=== PATIENT | female | born 1960 | race Caucasian/White ===

== ENCOUNTER 2020-01-01 20:07 | Inpatient (IN) | payer MEDICAID ==
[~2020-01-01] VITALS: Ht 171.4 cm; Wt 79.0 kg
[~2020-01-01 20:07] MED LIST: FAMO-128 PO; GABA100C PO; LAMO25TA94 PO; LEVO50TA67 PO; SERT50TA PO
[2020-01-01] MEDS ORDERED: normal saline 1000ML IV soln IVB ONE (21:10)
[2020-01-01] MEDS ORDERED: ondansetron/PF 4mg/2ml inj IV ONE (21:10)
[2020-01-01] MEDS ORDERED: pantoprazole 40 MG vial IV ONE (21:10)
[2020-01-01 21:16] LABS: BASOPHILS # (AUTO) 0.1 X10'3 (0-0.2); BASOPHILS % (AUTO) 0.3 % (0-1); EOSINOPHILS % (AUTO) 0 % (0-6); HEMATOCRIT 40.8 % (35.0-45.0); HEMOGLOBIN 13.7 g/dl (12.0-16.0); LYMPHOCYTES # (AUTO) 1.4 X10'3 (1.1-4.8); LYMPHOCYTES % (AUTO) 5.6 % (21-51); MEAN CORPUSCULAR HEMOGLOBIN 30.4 PG (27.0-31.0); MEAN CORPUSCULAR HGB CONC 33.6 g/dL (33.0-36.5); MEAN CORPUSCULAR VOLUME 90.4 FL (78-98); MEAN PLATELET VOLUME 8.6 FL (7.4-10.4); MONOCYTES # (AUTO) 1.5 X10'3 (0-0.9); NEUTROPHILS # (AUTO) 22.2 X10'3 (1.8-7.7); NEUTROPHILS % (AUTO) 88.1 % (42-75); PLATELET COUNT 248 X10'3 (140-440); RED BLOOD COUNT 4.52 X10'6 (4.20-5.60); RED CELL DISTRIBUTION WIDTH 14.8 % (11.5-14.5)
[2020-01-01 21:20] LABS: WHITE BLOOD COUNT 25.2 X10'3 (4.5-11.0)
[2020-01-01 21:50] LABS: TOTAL CELLS COUNTED 100
[2020-01-01 21:51] LABS: PLATELET ESTIMATE NORMAL
[2020-01-01] MEDS ORDERED: FAMO-128 PO (21:59)
[2020-01-01 22:04] LABS: ALANINE AMINOTRANSFERASE 34 U/L (12-78); ALBUMIN 4.2 G/DL (3.4-5.0); ALBUMIN/GLOBULIN RATIO 1.2 (1.1-1.5); ALKALINE PHOSPHATASE 110 IU/L (46-116); ANION GAP 16 (8-16); ASPARTATE AMINO TRANSFERASE 40 U/L (10-37); BILIRUBIN,TOTAL 1.4 MG/DL (0.1-1.0); BLOOD UREA NITROGEN 55 MG/DL (7-18); BUN/CREATININE RATIO 42.3 (6.6-38.0); CALCIUM 9.3 MG/DL (8.5-10.1); CHLORIDE 92 MMOL/L (99-107); GLUCOSE 158 MG/DL (70-104); LIPASE 148 U/L (73-393); SODIUM 129 MMOL/L (135-145); TOTAL CARBON DIOXIDE 21.1 MMOL/L (24-32); TOTAL PROTEIN 7.8 G/DL (6.4-8.2); eGFR 42 ML/MIN
[2020-01-01 22:06] LABS: ETHANOL < 0.010 GM/DL (0.0-0.010)
[2020-01-01 22:10] LABS: POTASSIUM 2.9 MMOL/L (3.5-5.1)
[2020-01-01] MEDS: potassium Cl 10 mEq/100mL bag IV SCH (22:48)
--- NOTE | 2020-01-01 22:59 | NUR ---
Pt assisted to the bedside commode to void clean catch urine specimen. Dr. Guerrero attempted some valsalva maneuvers to attempt to convert the elevated heart rate, SVT running 140's to 165 on the tele monitor. Pt's heart rate continues to be elevated.
[2020-01-01 23:13] LABS: CLARITY,URINE CLEAR (Clear); COLOR,URINE STRAW (Yellow); GLUCOSE, URINE NEGATIVE (Neg); KETONES,URINE 15 mg/dl (Neg); LEUKOCYTE ESTERASE ,URINE NEGATIVE (Neg); NITRITES, URINE POSITIVE (Neg); OCCULT BLOOD,URINE SMALL (Neg); PROTEIN,URINE NEGATIVE (Neg); UROBILINOGEN,URINE 0.2 E.U/dL (0.2-1.0)
[2020-01-01 23:19] LABS: UA COLLECTION TYPE CLN CATCH MIDSTREAM
[2020-01-01 23:21] LABS: BACTERIA,URINE 1+ /HPF (Neg); RBC,URINE 0-2 /HPF (0-2); SQUAMOUS EPITHELIAL CELL,UR FEW /LPF (FEW); WBC,URINE 0-4 /HPF (0-4)
--- NOTE | 2020-01-01 23:25 | NUR ---
Consent reviewed and signed for cardioversion of SVT. Pt is on the monitor and crash cart pads.
[2020-01-01] MEDS ORDERED: adenosine 3mg/ml 2ml vial IV ONE ×2 (23:40)
--- NOTE | 2020-01-01 23:55 | NUR ---
6mg adenosine administered with Dr Guerrero at bedside. RT Kaitlynn also present. Patient's HR 122 following medication administration, EKG done at this time. MD garrison
[2020-01-02] MEDS ORDERED: proCHLORperazine 10mg tablet PO ONE
[2020-01-02] MEDS ORDERED: proCHLORperazine 10 MG/2 ml inj IV ONE (00:05)
--- NOTE | 2020-01-02 00:05 | NUR ---
assumed care from [facility] at this time no questions or concerns after assuming care
[2020-01-02] MEDS: potassium Cl 10 mEq/100mL bag IV SCH (00:27)
[2020-01-02] MEDS ORDERED: potassium Cl 20 mEq SR tablet PO PRN (03:15)
[2020-01-02] MEDS ORDERED: ondansetron/PF 4mg/2ml inj IV PRN (03:15)
[2020-01-02] MEDS ORDERED: magnesium 2GM in 50ml NS 50 ML IV PRN (03:15)
[2020-01-02] MEDS ORDERED: magnesium 4gm in 100ml NS 100 ML IV PRN (03:15)
[2020-01-02] MEDS ORDERED: magnesium Cl slow-release 64mg tablet PO PRN (03:15)
--- NOTE | 2020-01-02 03:30 | NUR ---
PATIENT UP TO BEDSIDE COMMODE IN EYESITE OF PRIMARY RN
--- NOTE | 2020-01-02 03:45 | NUR ---
Patient in room ED 3. I have received report from Jermaine JAMESON and had the opportunity to ask questions and assume patient care.
[2020-01-02 03:50] VITALS: BP 131/74
[2020-01-02] MEDS: normal saline 1000ml 1,000 ML IV SCH ×3 (03:58→22:49)
--- NOTE | 2020-01-02 04:17 | NUR ---
Patient arrived to the floor at 0350 from the ER via gurney. VSS. Skin check complete. Darting complete. MRSA swab collected. Oriented patient to room, vital signs times, medication times, meal times, and unit policies.
[2020-01-02] MEDS: pantoprazole 40MG/NS 100ML BAG 100 ML IV SCH ×4 (05:15→20:44)
--- NOTE | 2020-01-02 06:20 | NUR ---
Problems reprioritized. Patient report given, questions answered & plan of care reviewed with Krista JAMESON.
--- NOTE | 2020-01-02 06:26 | NUR ---
Patient in room PCU 3024. I have received report from Katherine JAMESON and had the opportunity to ask questions and assume patient care. Patient currently sleeping, NS and Protonix running per MD order.
[2020-01-02 07:00] VITALS: BP 111/67
--- NOTE | 2020-01-02 07:28 | NUR ---
Page sent to Dr. Leary: PAGER ID: [phone] MESSAGE: [id number] Sadie Elliott: Temp is 99.8,would you like PRN Tylenol ordered? Thanks, Krista [phone]
[2020-01-02] MEDS: sertraline 50mg tablet PO SCH (07:43)
[2020-01-02] MEDS: levoTHYROXINE 25mcg tablet PO SCH (07:43)
[2020-01-02] MEDS: K and/or MAG REPLACEMENT MC SCH ×2 (08:00→20:00)
[2020-01-02 08:38] LABS: ALBUMIN 3.5 G/DL (3.4-5.0); ANION GAP 15 (8-16); BLOOD UREA NITROGEN 45 MG/DL (7-18); BUN/CREATININE RATIO 41.3 (6.6-38.0); CALCIUM 8.2 MG/DL (8.5-10.1); CHLORIDE 105 MMOL/L (99-107); CREATININE 1.09 MG/DL (0.40-0.90); GLUCOSE 118 MG/DL (70-104); POTASSIUM 3.1 MMOL/L (3.5-5.1); SODIUM 137 MMOL/L (135-145); TOTAL CARBON DIOXIDE 16.7 MMOL/L (24-32); eGFR 52 ML/MIN
[2020-01-02] MEDS ORDERED: metoprolol tartrate 1mg/ml inj IV ONE (09:10)
[2020-01-02] MEDS ORDERED: acetaminophen 325mg tablet PO PRN ×2 (09:40)
[2020-01-02 09:49] LABS: BASOPHILS % (AUTO) 0.1 % (0-1); EOSINOPHILS % (AUTO) 0 % (0-6); HEMATOCRIT 29.3 % (35.0-45.0); LYMPHOCYTES # (AUTO) 0.9 X10'3 (1.1-4.8); LYMPHOCYTES % (AUTO) 6.7 % (21-51); MEAN CORPUSCULAR HEMOGLOBIN 30.2 PG (27.0-31.0); MEAN CORPUSCULAR VOLUME 88.6 FL (78-98); MEAN PLATELET VOLUME 8.6 FL (7.4-10.4); MONOCYTES # (AUTO) 0.8 X10'3 (0-0.9); MONOCYTES % (AUTO) 5.6 % (2-12); NEUTROPHILS # (AUTO) 11.8 X10'3 (1.8-7.7); NEUTROPHILS % (AUTO) 87.6 % (42-75); PLATELET COUNT 191 X10'3 (140-440); RED BLOOD COUNT 3.31 X10'6 (4.20-5.60); RED CELL DISTRIBUTION WIDTH 14.2 % (11.5-14.5); WHITE BLOOD COUNT 13.5 X10'3 (4.5-11.0)
[2020-01-02] MEDS ORDERED: haloperidol lactate 5mg/ml inj IM PRN (10:40)
[2020-01-02] MEDS ORDERED: haloperidol 5mg tablet PO PRN (10:40)
[2020-01-02] MEDS: HYDROmorphone inj. 0.5 MG/0.5 ML DISP.SYRIN IV PRN ×2 (10:43→19:18)
[2020-01-02] MEDS: potassium CL 10mEq/100ml bag 100 ML IV PRN ×4 (10:56→15:44)
[2020-01-02 11:00] VITALS: BP 104/74
[2020-01-02 12:17] LABS: URINE AMPHETAMINE SCREEN NEGATIVE (Neg); URINE BARBITUATE SCREEN NEGATIVE (Neg); URINE BENZODIAZEPINES SCREEN NEGATIVE (Neg); URINE CANNABINOID SCREEN POSITIVE (Neg); URINE COCAINE SCREEN NEGATIVE (Neg); URINE METHADONE SCREEN NEGATIVE (Neg); URINE OPIATE SCREEN NEGATIVE (Neg); URINE PHENCYCLIDINE SCREEN NEGATIVE (Neg)
[2020-01-02] MEDS ORDERED: metoclopramide 5 mg/ml inj IV PRN (13:55)
[2020-01-02 15:00] VITALS: BP 119/84
[2020-01-02] MEDS: piperacillin/tazo 3.375gm/50ml 50 ML IV SCH (15:51)
[2020-01-02 18:00] VITALS: BP 123/85
--- NOTE | 2020-01-02 18:25 | NUR ---
Problems reprioritized. Patient report given, questions answered & plan of care reviewed with Kieran JAMESON. Patient stable at transfer of care.
--- NOTE | 2020-01-02 18:25 | NUR ---
Patient in room PCU 3024X. I have received report from TRINO Velasco and had the opportunity to ask questions and assume patient care. Patient denies CP, dizziness, n/v and rated pain 8/10. Pt received all bags of potassium.
[2020-01-02 22:00] VITALS: BP 125/74
[2020-01-02] MEDS ORDERED: benzocaine/menthol oral lozeng 1 EACH BOX MM PRN (22:05)
[2020-01-03] VITALS (26 sets, daily range): BP systolic 93–157; BP diastolic 52–111
[2020-01-03] MEDS: piperacillin/tazo 3.375gm/50ml 50 ML IV SCH ×2 (00:01→08:58)
[2020-01-03] MEDS: pantoprazole 40MG/NS 100ML BAG 100 ML IV SCH ×5 (00:52→19:11)
[2020-01-03] MEDS: HYDROmorphone inj. 0.5 MG/0.5 ML DISP.SYRIN IV PRN ×3 (02:46→23:35)
[2020-01-03 05:58] LABS: BASOPHILS % (AUTO) 0.3 % (0-1); EOSINOPHILS % (AUTO) 0.2 % (0-6); HEMATOCRIT 24.8 % (35.0-45.0); HEMOGLOBIN 8.6 g/dl (12.0-16.0); LYMPHOCYTES % (AUTO) 9.6 % (21-51); MEAN CORPUSCULAR HGB CONC 34.5 g/dL (33.0-36.5); MEAN CORPUSCULAR VOLUME 89.9 FL (78-98); MEAN PLATELET VOLUME 8.4 FL (7.4-10.4); MONOCYTES # (AUTO) 0.6 X10'3 (0-0.9); MONOCYTES % (AUTO) 5.8 % (2-12); NEUTROPHILS # (AUTO) 8.6 X10'3 (1.8-7.7); NEUTROPHILS % (AUTO) 84.1 % (42-75); PLATELET COUNT 150 X10'3 (140-440); RED BLOOD COUNT 2.76 X10'6 (4.20-5.60); RED CELL DISTRIBUTION WIDTH 14.5 % (11.5-14.5); WHITE BLOOD COUNT 10.2 X10'3 (4.5-11.0)
--- NOTE | 2020-01-03 06:18 | NUR ---
Problems reprioritized. Patient report given, questions answered & plan of care reviewed with TRINO Polo. Patient stable at shift change
[2020-01-03 06:29] LABS: ALBUMIN 3.5 G/DL (3.4-5.0); AMYLASE 51 U/L (25-115); ANION GAP 12 (8-16); BLOOD UREA NITROGEN 12 MG/DL (7-18); CALCIUM 8.3 MG/DL (8.5-10.1); CHLORIDE 111 MMOL/L (99-107); GLUCOSE 112 MG/DL (70-104); LIPASE 443 U/L (73-393); MAGNESIUM 1.8 MG/DL (1.5-2.4); SODIUM 147 MMOL/L (135-145); TOTAL CARBON DIOXIDE 24.5 MMOL/L (24-32); eGFR 74 ML/MIN
[2020-01-03 06:30] LABS: PHOSPHORUS 0.9 MG/DL (2.3-4.5); POTASSIUM 2.8 MMOL/L (3.5-5.1)
--- NOTE | 2020-01-03 06:44 | NUR ---
Patient in room PCU 3024. I have received report from TRINO Alcaraz and had the opportunity to ask questions and assume patient care. Patient currently resting in bed, bed locked and low, call light in reach, no acute distress, will continue to monitor
--- NOTE | 2020-01-03 07:04 | NUR ---
PAGER ID: [phone] MESSAGE: TRINO Polo, [phone], [phone], Earl, received critical value: K 2.8, Phos 0.9, will replace K per protocol, no phos replacement ordered.
[2020-01-03] MEDS: levoTHYROXINE 25mcg tablet PO SCH (07:34)
[2020-01-03] MEDS: sertraline 50mg tablet PO SCH (07:34)
[2020-01-03] MEDS: potassium CL 10mEq/100ml bag 100 ML IV PRN ×3 (07:41→10:51)
[2020-01-03] MEDS ORDERED: thiamine inj. 100 MG, folic acid inj. 2 MG in normal saline 100ml IV soln 100 ML IV SCH (08:00)
[2020-01-03] MEDS ORDERED: MVI, adult No.4 with vit. K 10 ML in dextrose 5% water 500ml 500 ML IV SCH ×2 (08:00)
[2020-01-03] MEDS: LORazepam 2 mg/ml vial IV PRN ×3 (08:04→23:34)
[2020-01-03] MEDS: K and/or MAG REPLACEMENT MC SCH ×2 (08:08→19:27)
[2020-01-03] MEDS: normal saline 1000ml 1,000 ML IV SCH ×2 (09:54→19:07)
[2020-01-03] MEDS ORDERED: thiamine inj. 100 MG in normal saline 100ml IV soln 100 ML IV ONE (10:30)
[2020-01-03] MEDS ORDERED: fentaNYL/PF 50MCG/1 ML 2ML syringe ONE ×2 (13:32→16:38)
[2020-01-03] MEDS ORDERED: LIDOcaine Viscous 15ml cup ONE ×2 (13:32→16:38)
[2020-01-03] MEDS ORDERED: MIDAZolam 5mg/5ml vial ONE ×2 (13:32→16:38)
[2020-01-03] MEDS ORDERED: ondansetron/PF 4mg/2ml inj ONE (17:13)
[2020-01-03] MEDS ORDERED: metoclopramide 5 mg/ml inj IV ONE (17:40)
[2020-01-03] MEDS ORDERED: ondansetron/PF 4mg/2ml inj IV PRN (17:40)
[2020-01-03] MEDS ORDERED: epiNEPHrine 0.1mg/ml 10ml syringe ONE (17:45)
--- NOTE | 2020-01-03 18:13 | NUR ---
Problems reprioritized. Patient report given, questions answered & plan of care reviewed with TRINO Noyola. Addendum: 01/03/20 at 1819 by Melani Eng RN Report given to Minal JAMESON
--- NOTE | 2020-01-03 18:30 | NUR ---
Patient came back from GI lab awake and A&Ox4. Vital signs 108/62, HR 126, 99.4F Ax, RR 18, 94% on RA. Skin color is normal, strong pedal and radial pulses, [employer] <3 secs. GI staff said there was a bleed during the procedure so to keep her NPO until tomorrow morning, and then she can be started on Clear liquids. Patient was educated on this as well.
[2020-01-03] MEDS: lactobacillus rhamnosus 10,000 MMU CELLS/CAPSULE PO SCH (19:11)
[2020-01-03] MEDS: sucralfate 1gm/10ml UD suspension PO SCH (20:33)
--- NOTE | 2020-01-03 21:43 | NUR ---
Patient in room [facility] 3028. I have received report from TRINO Power and had the opportunity to ask questions and assume patient care. Addendum: 01/03/20 at 2143 by Minal Herrera RN Melani Eng RN not Jannet
[2020-01-04] MEDS: pantoprazole 40MG/NS 100ML BAG 100 ML IV SCH ×5 (00:27→20:49)
[2020-01-04 02:08] VITALS: BP 119/72
[2020-01-04 04:44] LABS: ALBUMIN 3.6 G/DL (3.4-5.0); AMYLASE 43 U/L (25-115); ANION GAP 9 (8-16); BLOOD UREA NITROGEN 8 MG/DL (7-18); BUN/CREATININE RATIO 11.9 (6.6-38.0); CALCIUM 8.3 MG/DL (8.5-10.1); CHLORIDE 120 MMOL/L (99-107); CREATININE 0.67 MG/DL (0.40-0.90); GLUCOSE 102 MG/DL (70-104); LIPASE 307 U/L (73-393); MAGNESIUM 1.8 MG/DL (1.5-2.4); POTASSIUM 3.3 MMOL/L (3.5-5.1); TOTAL CARBON DIOXIDE 26.4 MMOL/L (24-32); eGFR 90 ML/MIN
[2020-01-04 04:47] LABS: PHOSPHORUS 0.8 MG/DL (2.3-4.5); SODIUM 155 MMOL/L (135-145)
[2020-01-04] MEDS ORDERED: sodium phosphate inj. 30 MMOL in dextrose 5%-water 250 ML IV ONE (04:55)
--- NOTE | 2020-01-04 04:59 | NUR ---
Criticals NA 155 and PHOS 0.8 PAGER ID: [phone] MESSAGE: [id number] Sadie Elliott, critical levels: NA 155 and PHOS 0.8. Minal [phone] called back and gave new orders to replace phosphorus per protocol and start D5 1/2 NS @100ml/hr.
[2020-01-04] MEDS: dextrose 5%-1/2 normal saline 1,000 ML IV SCH ×3 (05:13→20:46)
[2020-01-04] MEDS: HYDROmorphone inj. 0.5 MG/0.5 ML DISP.SYRIN IV PRN ×3 (05:20→20:06)
[2020-01-04] MEDS: LORazepam 2 mg/ml vial IV PRN ×2 (05:20→08:56)
--- NOTE | 2020-01-04 06:16 | NUR ---
Problems reprioritized. Patient report given, questions answered & plan of care reviewed with TRINO Cochran.
--- NOTE | 2020-01-04 06:22 | NUR ---
Patient in room PCU 3028. I have received report from TRINO Fontaine and had the opportunity to ask questions and assume patient care. Patient awake in bed and in no acute distress.
[2020-01-04 06:37] LABS: BASOPHILS % (AUTO) 0.4 % (0-1); EOSINOPHILS # (AUTO) 0.1 X10'3 (0-0.9); EOSINOPHILS % (AUTO) 0.7 % (0-6); HEMOGLOBIN 7.5 g/dl (12.0-16.0); LYMPHOCYTES # (AUTO) 1.4 X10'3 (1.1-4.8); MEAN CORPUSCULAR HEMOGLOBIN 31.4 PG (27.0-31.0); MEAN CORPUSCULAR HGB CONC 34.3 g/dL (33.0-36.5); MEAN CORPUSCULAR VOLUME 91.5 FL (78-98); MEAN PLATELET VOLUME 8.2 FL (7.4-10.4); MONOCYTES # (AUTO) 0.6 X10'3 (0-0.9); MONOCYTES % (AUTO) 6.3 % (2-12); NEUTROPHILS # (AUTO) 7.8 X10'3 (1.8-7.7); NEUTROPHILS % (AUTO) 78.6 % (42-75); PLATELET COUNT 165 X10'3 (140-440); RED BLOOD COUNT 2.38 X10'6 (4.20-5.60); RED CELL DISTRIBUTION WIDTH 14.8 % (11.5-14.5)
[2020-01-04 06:47] LABS: HEMATOCRIT 21.8 % (35.0-45.0)
--- NOTE | 2020-01-04 06:49 | NUR ---
Paged Dr. Cavazos regarding critical lab of Hemoglobin and Hematocrit. PAGER ID: [phone] MESSAGE: [id number]. Sadie Elliott. Critical lab Hbg 7.5 and Hct 21.8. Thank you. Sammie JAMESON x [phone]
[2020-01-04 07:00] VITALS: BP 121/82
[2020-01-04 07:30] LABS: ANISOCYTOSIS FEW; HYPOCHROMASIA 1+; NUCLEATED RED BLOOD CELLS 4 /100WBC (0-0); PLATELET ESTIMATE NORMAL; POLYCHROMASIA 2+; TOTAL CELLS COUNTED 100; TOXIC GRANULATION 1+
[2020-01-04] MEDS: K and/or MAG REPLACEMENT MC SCH ×2 (08:00→20:00)
[2020-01-04] MEDS: sucralfate 1gm/10ml UD suspension PO SCH ×4 (08:55→20:05)
--- NOTE | 2020-01-04 09:07 | NUR ---
Paged Dr. Barraza regarding patient's morning critical labs. PAGER ID: [phone] MESSAGE: [id number]. Sadie Elliott. Critical lab Hgb 7.5, Hct 21.8. Thank you. Sammie JAMESON x [phone]
[2020-01-04] MEDS: folic acid 1mg tablet PO SCH (09:55)
[2020-01-04] MEDS: multivitamins, therapeutics tablet PO SCH (09:55)
[2020-01-04] MEDS: thiamine 100mg tablet PO SCH (09:55)
[2020-01-04] MEDS: levoTHYROXINE 25mcg tablet PO SCH (09:56)
[2020-01-04] MEDS: lactobacillus rhamnosus 10,000 MMU CELLS/CAPSULE PO SCH ×2 (09:56→20:05)
[2020-01-04] MEDS: sertraline 50mg tablet PO SCH (09:56)
[2020-01-04] MEDS: potassium Cl 20 mEq SR tablet PO PRN ×3 (09:57→20:05)
[2020-01-04] MEDS ORDERED: LORazepam 2 mg/ml vial IV PRN (10:40)
[2020-01-04 11:00] VITALS: BP 114/76
--- NOTE | 2020-01-04 11:22 | NUR ---
Patient in room PCU 3028. I have received report from Sammie JAMESON and had the opportunity to ask questions and assume patient care.
[2020-01-04] MEDS: CefTRIAXone/D5W-Rocephin 1gm 50 ML IV SCH (11:47)
[2020-01-04] MEDS: LORazepam 1 MG tablet PO PRN ×2 (12:19→19:39)
--- NOTE | 2020-01-04 13:10 | NUR ---
Problems reprioritized. Patient report given, questions answered & plan of care reviewed with TRINO Palomares. Patient stable at transfer of care.
[2020-01-04 15:00] VITALS: BP 115/79
[2020-01-04 18:00] VITALS: BP 116/75
--- NOTE | 2020-01-04 18:41 | NUR ---
Problems reprioritized. Patient report given, questions answered & plan of care reviewed with Amber JAMESON.
--- NOTE | 2020-01-04 18:51 | NUR ---
Patient in room U 3028. I have received report from TRINO GAMBLE and had the opportunity to ask questions and assume patient care. Addendum: 01/04/20 at 1851 by Kay Henry RN Amended: Links added.
[2020-01-04 22:00] VITALS: BP 108/75
[2020-01-05] VITALS (16 sets, daily range): BP systolic 97–126; BP diastolic 64–89
[2020-01-05] MEDS: LORazepam 1 MG tablet PO PRN (00:49)
[2020-01-05] MEDS: pantoprazole 40MG/NS 100ML BAG 100 ML IV SCH ×5 (01:40→20:03)
--- NOTE | 2020-01-05 06:10 | NUR ---
Problems reprioritized. Patient report given, questions answered & plan of care reviewed with TRINO Palomares. Addendum: 01/05/20 at 0610 by Kay Henry RN Amended: Links added.
[2020-01-05 06:20] LABS: ALBUMIN 2.9 G/DL (3.4-5.0); AMYLASE 38 U/L (25-115); ANION GAP 9 (8-16); BLOOD UREA NITROGEN 2 MG/DL (7-18); BUN/CREATININE RATIO 3.3 (6.6-38.0); CALCIUM 7.9 MG/DL (8.5-10.1); CHLORIDE 118 MMOL/L (99-107); CREATININE 0.61 MG/DL (0.40-0.90); GLUCOSE 105 MG/DL (70-104); LIPASE 335 U/L (73-393); MAGNESIUM 1.5 MG/DL (1.5-2.4); PHOSPHORUS 2.3 MG/DL (2.3-4.5); SODIUM 153 MMOL/L (135-145); TOTAL CARBON DIOXIDE 26.2 MMOL/L (24-32); eGFR > 90 ML/MIN
[2020-01-05 06:25] LABS: POTASSIUM 2.8 MMOL/L (3.5-5.1)
[2020-01-05 06:26] LABS: BASOPHILS % (AUTO) 0.6 % (0-1); EOSINOPHILS # (AUTO) 0.2 X10'3 (0-0.9); EOSINOPHILS % (AUTO) 2.1 % (0-6); LYMPHOCYTES # (AUTO) 1.8 X10'3 (1.1-4.8); MEAN CORPUSCULAR HEMOGLOBIN 31.8 PG (27.0-31.0); MEAN CORPUSCULAR HGB CONC 34.3 g/dL (33.0-36.5); MEAN CORPUSCULAR VOLUME 92.6 FL (78-98); MEAN PLATELET VOLUME 8.2 FL (7.4-10.4); MONOCYTES # (AUTO) 0.6 X10'3 (0-0.9); MONOCYTES % (AUTO) 7.5 % (2-12); NEUTROPHILS # (AUTO) 5.4 X10'3 (1.8-7.7); NEUTROPHILS % (AUTO) 67.8 % (42-75); PLATELET COUNT 174 X10'3 (140-440); RED BLOOD COUNT 2.15 X10'6 (4.20-5.60); RED CELL DISTRIBUTION WIDTH 15.2 % (11.5-14.5)
--- NOTE | 2020-01-05 06:28 | NUR ---
Patient in room PCU 3028. I have received report from Amber JAMESON and had the opportunity to ask questions and assume patient care.
[2020-01-05 06:44] LABS: HEMATOCRIT 19.9 % (35.0-45.0); HEMOGLOBIN 6.8 g/dl (12.0-16.0)
--- NOTE | 2020-01-05 06:45 | NUR ---
Received critical lab of Hgb: 6.8, Hct: 19.9. Reported lab values to primary nurse, TRINO Palomares.
--- NOTE | 2020-01-05 07:04 | NUR ---
PAGER ID: [phone] MESSAGE: [id number] Sadie Elliott: Reporting critical Hgb of 6.8, Hct 19.9, Do you want to start blood transfusion? Thanks Marielle [phone]
[2020-01-05] MEDS: sertraline 50mg tablet PO SCH (07:16)
[2020-01-05] MEDS: folic acid 1mg tablet PO SCH (07:16)
[2020-01-05] MEDS: CefTRIAXone/D5W-Rocephin 1gm 50 ML IV SCH (07:16)
[2020-01-05] MEDS: sucralfate 1gm/10ml UD suspension PO SCH ×4 (07:16→20:04)
[2020-01-05] MEDS: lactobacillus rhamnosus 10,000 MMU CELLS/CAPSULE PO SCH ×2 (07:16→20:03)
[2020-01-05] MEDS: thiamine 100mg tablet PO SCH (07:17)
[2020-01-05] MEDS: levoTHYROXINE 25mcg tablet PO SCH (07:17)
[2020-01-05] MEDS: HYDROmorphone inj. 0.5 MG/0.5 ML DISP.SYRIN IV PRN ×2 (07:17→14:27)
[2020-01-05] MEDS: multivitamins, therapeutics tablet PO SCH (07:17)
[2020-01-05] MEDS ORDERED: potassium Cl 20 mEq SR tablet PO PRN (07:25)
[2020-01-05] MEDS ORDERED: potassium CL 10mEq/100ml bag 100 ML IV PRN (07:25)
[2020-01-05 07:49] LABS: NUCLEATED RED BLOOD CELLS 5 /100WBC (0-0); TOTAL CELLS COUNTED 100
[2020-01-05 07:51] LABS: LARGE PLATELETS FEW; PLATELET ESTIMATE NORMAL; POLYCHROMASIA 2+
[2020-01-05 07:53] LABS: TOXIC GRANULATION 1+
[2020-01-05] MEDS: K and/or MAG REPLACEMENT MC SCH ×2 (08:00→20:00)
--- NOTE | 2020-01-05 08:01 | NUR ---
PAGER ID: [phone] MESSAGE: [id number] CRITICAL H/H 6.8/19.9. Please advise. Thank you L - [phone]
[2020-01-05] MEDS: potassium Cl 20 mEq SR tablet PO PRN ×3 (08:36→21:57)
[2020-01-05] MEDS: dextrose 5%-1/2 normal saline 1,000 ML IV SCH (11:05)
--- NOTE | 2020-01-05 18:54 | NUR ---
Problems reprioritized. Patient report given, questions answered & plan of care reviewed with Carisa JAMESON.
--- NOTE | 2020-01-05 18:57 | NUR ---
Patient in room PCU 3028. I have received report from Marielle JAMESON and had the opportunity to ask questions and assume patient care.
[2020-01-05 21:00] LABS: BASOPHILS # (AUTO) 0.1 X10'3 (0-0.2); BASOPHILS % (AUTO) 0.5 % (0-1); EOSINOPHILS # (AUTO) 0.2 X10'3 (0-0.9); EOSINOPHILS % (AUTO) 2.1 % (0-6); HEMOGLOBIN 11.1 g/dl (12.0-16.0); LYMPHOCYTES # (AUTO) 2.2 X10'3 (1.1-4.8); LYMPHOCYTES % (AUTO) 20.2 % (21-51); MEAN CORPUSCULAR HGB CONC 33.5 g/dL (33.0-36.5); MEAN CORPUSCULAR VOLUME 92.4 FL (78-98); MEAN PLATELET VOLUME 8.3 FL (7.4-10.4); MONOCYTES # (AUTO) 0.9 X10'3 (0-0.9); MONOCYTES % (AUTO) 8.4 % (2-12); NEUTROPHILS # (AUTO) 7.5 X10'3 (1.8-7.7); NEUTROPHILS % (AUTO) 68.8 % (42-75); PLATELET COUNT 200 X10'3 (140-440); RED BLOOD COUNT 3.57 X10'6 (4.20-5.60); RED CELL DISTRIBUTION WIDTH 15.6 % (11.5-14.5); WHITE BLOOD COUNT 10.9 X10'3 (4.5-11.0)
[2020-01-06] MEDS: pantoprazole 40MG/NS 100ML BAG 100 ML IV SCH ×3 (01:28→11:00)
[2020-01-06] MEDS: dextrose 5%-1/2 normal saline 1,000 ML IV SCH ×2 (01:29→07:05)
[2020-01-06] MEDS: LORazepam 1 MG tablet PO PRN ×2 (01:30→03:36)
[2020-01-06] MEDS: HYDROmorphone inj. 0.5 MG/0.5 ML DISP.SYRIN IV PRN (01:32)
[2020-01-06 02:00] VITALS: BP 125/83
[2020-01-06 06:30] VITALS: BP 143/84
[2020-01-06 06:44] LABS: BASOPHILS % (AUTO) 0.5 % (0-1); EOSINOPHILS # (AUTO) 0.2 X10'3 (0-0.9); EOSINOPHILS % (AUTO) 2.6 % (0-6); HEMATOCRIT 31.3 % (35.0-45.0); HEMOGLOBIN 10.5 g/dl (12.0-16.0); LYMPHOCYTES # (AUTO) 1.5 X10'3 (1.1-4.8); LYMPHOCYTES % (AUTO) 16.4 % (21-51); MEAN CORPUSCULAR HEMOGLOBIN 30.8 PG (27.0-31.0); MEAN CORPUSCULAR HGB CONC 33.6 g/dL (33.0-36.5); MEAN CORPUSCULAR VOLUME 91.7 FL (78-98); MEAN PLATELET VOLUME 8.1 FL (7.4-10.4); MONOCYTES # (AUTO) 0.9 X10'3 (0-0.9); MONOCYTES % (AUTO) 9.9 % (2-12); NEUTROPHILS # (AUTO) 6.4 X10'3 (1.8-7.7); NEUTROPHILS % (AUTO) 70.6 % (42-75); PLATELET COUNT 222 X10'3 (140-440); RED BLOOD COUNT 3.41 X10'6 (4.20-5.60); RED CELL DISTRIBUTION WIDTH 15.9 % (11.5-14.5)
[2020-01-06 06:47] LABS: ALBUMIN 3.3 G/DL (3.4-5.0); AMYLASE 32 U/L (25-115); ANION GAP 7 (8-16); BLOOD UREA NITROGEN 2 MG/DL (7-18); BUN/CREATININE RATIO 2.9 (6.6-38.0); CALCIUM 8.3 MG/DL (8.5-10.1); CHLORIDE 120 MMOL/L (99-107); CREATININE 0.69 MG/DL (0.40-0.90); GLUCOSE 111 MG/DL (70-104); LIPASE 231 U/L (73-393); MAGNESIUM 1.4 MG/DL (1.5-2.4); PHOSPHORUS 2.2 MG/DL (2.3-4.5); POTASSIUM 3.6 MMOL/L (3.5-5.1); SODIUM 154 MMOL/L (135-145); TOTAL CARBON DIOXIDE 26.9 MMOL/L (24-32); eGFR 87 ML/MIN
--- NOTE | 2020-01-06 07:29 | NUR ---
Patient in room U 3028. I have received report from TRINO GARZA and had the opportunity to ask questions and assume patient care. Addendum: 01/06/20 at 0512 by Na Howe RN TRINO RODRIGUEZ
--- NOTE | 2020-01-06 07:32 | NUR ---
Problems reprioritized. Patient report given, questions answered & plan of care reviewed with Na JAMESON.
[2020-01-06] MEDS: sucralfate 1gm/10ml UD suspension PO SCH ×4 (07:45→20:20)
[2020-01-06] MEDS: multivitamins, therapeutics tablet PO SCH (07:45)
[2020-01-06] MEDS: lactobacillus rhamnosus 10,000 MMU CELLS/CAPSULE PO SCH ×2 (07:45→20:20)
[2020-01-06] MEDS: thiamine 100mg tablet PO SCH (07:45)
[2020-01-06] MEDS: sertraline 50mg tablet PO SCH (07:45)
[2020-01-06] MEDS: folic acid 1mg tablet PO SCH (07:45)
[2020-01-06] MEDS: levoTHYROXINE 25mcg tablet PO SCH (07:45)
[2020-01-06] MEDS: CefTRIAXone/D5W-Rocephin 1gm 50 ML IV SCH (07:46)
[2020-01-06] MEDS: K and/or MAG REPLACEMENT MC SCH ×4 (08:00→19:47)
[2020-01-06 08:22] LABS: TOTAL CELLS COUNTED 100
[2020-01-06 08:24] LABS: PLATELET ESTIMATE NORMAL; POLYCHROMASIA 1+
[2020-01-06 08:25] LABS: LARGE PLATELETS FEW
[2020-01-06] MEDS ORDERED: sodium phosphate inj. 30 MMOL in dextrose 5%-water 250 ML IV PRN (09:55)
[2020-01-06] MEDS ORDERED: magnesium 4gm in 100ml NS 100 ML IV PRN (09:55)
[2020-01-06] MEDS ORDERED: potassium CL 10mEq/100ml bag 100 ML IV PRN (09:55)
[2020-01-06] MEDS ORDERED: potassium Cl 20 mEq SR tablet PO PRN ×2 (09:55)
[2020-01-06] MEDS ORDERED: magnesium 2GM in 50ml NS 50 ML IV PRN (09:55)
[2020-01-06] MEDS ORDERED: sodium phosphate inj. 15 MMOL in dextrose 5%-water 250 ML IV PRN (09:55)
[2020-01-06] MEDS ORDERED: LORazepam 1 MG tablet PO PRN (10:40)
[2020-01-06] MEDS ORDERED: LORazepam 2 mg/ml vial IV PRN (10:40)
[2020-01-06] MEDS: Neutra Phos packet PO PRN ×3 (10:48→20:20)
[2020-01-06] MEDS: magnesium Cl slow-release 64mg tablet PO PRN ×2 (10:48→20:20)
--- NOTE | 2020-01-06 10:59 | NUR ---
PAGED DR. MENJIVAR PAGER ID: [phone] MESSAGE: [facility] [phone] TIARA RAMIREZ BEEN ON PROTONIX GTT SINCE 01/02 CONTINUE OR D/C? PT DOES NOT WANT TO GO TO REHAB. CONTINUE D5 1/2 NS? ON CL LIQ DIET
[2020-01-06 11:00] VITALS: BP 133/88
[2020-01-06] MEDS ORDERED: PANT40SU2 PO (11:30)
[2020-01-06 15:00] VITALS: BP 108/72
--- NOTE | 2020-01-06 15:20 | NUR ---
DR. MENJIVAR CALLED AND WOULD LIKE TO CANCEL DISCHARGE AND KEEP PT ANOTHER NIGHT DUE TO INCREASED NA LEVEL. SHE WILL CHANGE FLUIDS
[2020-01-06] MEDS: dextrose 5%-water 1,000 ML IV SCH (16:00)
[2020-01-06 18:00] VITALS: BP 122/77
--- NOTE | 2020-01-06 18:51 | NUR ---
Problems reprioritized. Patient report given, questions answered & plan of care reviewed with TRINO CARUSO.
--- NOTE | 2020-01-06 18:53 | NUR ---
Patient in room PCU 3028. I have received report from Na JAMESON and had the opportunity to ask questions and assume patient care.
[2020-01-06] MEDS: pantoprazole 40mg Tablet.DR PO SCH (20:20)
[2020-01-06 22:00] VITALS: BP 133/83
--- NOTE | 2020-01-06 23:33 | NUR ---
PAGER ID: [phone] MESSAGE: TIARA RAMIREZ [id number]: PATIENT IS REPORTING DIARRHEA. REQUESTING IMMODIUM. -OLAF JAMESON [phone]
[2020-01-07] MEDS: dextrose 5%-water 1,000 ML IV SCH ×2 (01:31→11:15)
[2020-01-07 02:00] VITALS: BP 117/79
[2020-01-07 06:10] LABS: BASOPHILS % (AUTO) 0.6 % (0-1); EOSINOPHILS # (AUTO) 0.1 X10'3 (0-0.9); EOSINOPHILS % (AUTO) 1.9 % (0-6); HEMATOCRIT 30.8 % (35.0-45.0); HEMOGLOBIN 10.6 g/dl (12.0-16.0); LYMPHOCYTES # (AUTO) 1.3 X10'3 (1.1-4.8); LYMPHOCYTES % (AUTO) 17.7 % (21-51); MEAN CORPUSCULAR HEMOGLOBIN 31.6 PG (27.0-31.0); MEAN CORPUSCULAR HGB CONC 34.4 g/dL (33.0-36.5); MEAN CORPUSCULAR VOLUME 91.8 FL (78-98); MEAN PLATELET VOLUME 8.1 FL (7.4-10.4); MONOCYTES # (AUTO) 0.8 X10'3 (0-0.9); MONOCYTES % (AUTO) 10.9 % (2-12); NEUTROPHILS % (AUTO) 68.9 % (42-75); PLATELET COUNT 232 X10'3 (140-440); RED BLOOD COUNT 3.35 X10'6 (4.20-5.60); RED CELL DISTRIBUTION WIDTH 15.8 % (11.5-14.5); WHITE BLOOD COUNT 7.2 X10'3 (4.5-11.0)
--- NOTE | 2020-01-07 06:22 | NUR ---
Problems reprioritized. Patient report given, questions answered & plan of care reviewed with Khushboo JAMESON.
--- NOTE | 2020-01-07 06:30 | NUR ---
Patient in room PCU 3028. I have received report from TRINO Murphy and had the opportunity to ask questions and assume patient care.
[2020-01-07 06:35] LABS: ALBUMIN 3.2 G/DL (3.4-5.0); AMYLASE 37 U/L (25-115); ANION GAP 9 (8-16); BLOOD UREA NITROGEN 1 MG/DL (7-18); BUN/CREATININE RATIO 1.5 (6.6-38.0); CALCIUM 8.1 MG/DL (8.5-10.1); CHLORIDE 108 MMOL/L (99-107); CREATININE 0.66 MG/DL (0.40-0.90); GLUCOSE 99 MG/DL (70-104); LIPASE 252 U/L (73-393); MAGNESIUM 1.4 MG/DL (1.5-2.4); PHOSPHORUS 3.5 MG/DL (2.3-4.5); SODIUM 144 MMOL/L (135-145); TOTAL CARBON DIOXIDE 26.9 MMOL/L (24-32); eGFR > 90 ML/MIN
[2020-01-07 06:41] LABS: POTASSIUM 2.7 MMOL/L (3.5-5.1)
[2020-01-07 06:49] VITALS: BP 116/82
--- NOTE | 2020-01-07 06:52 | NUR ---
Page sent to Dr. Cummings regarding potassium level. PAGER ID: [phone] MESSAGE: re [id number] Sadie Elliott: K+ 2.7, will replace per protocol. Thanks, Khushboo israel [phone]
[2020-01-07] MEDS: sucralfate 1gm/10ml UD suspension PO SCH ×2 (07:45→12:20)
[2020-01-07] MEDS: CefTRIAXone/D5W-Rocephin 1gm 50 ML IV SCH (07:47)
[2020-01-07] MEDS: lactobacillus rhamnosus 10,000 MMU CELLS/CAPSULE PO SCH (07:48)
[2020-01-07] MEDS: levoTHYROXINE 25mcg tablet PO SCH (07:48)
[2020-01-07] MEDS: folic acid 1mg tablet PO SCH (07:48)
[2020-01-07] MEDS: pantoprazole 40mg Tablet.DR PO SCH (07:48)
[2020-01-07] MEDS: thiamine 100mg tablet PO SCH (07:48)
[2020-01-07] MEDS: multivitamins, therapeutics tablet PO SCH (07:48)
[2020-01-07] MEDS: sertraline 50mg tablet PO SCH (07:49)
[2020-01-07] MEDS: potassium Cl 20 mEq SR tablet PO PRN (07:51)
[2020-01-07] MEDS: magnesium Cl slow-release 64mg tablet PO PRN (07:51)
[2020-01-07] MEDS: K and/or MAG REPLACEMENT MC SCH ×2 (08:00→08:37)
[2020-01-07] MEDS ORDERED: potassium Cl 20 mEq SR tablet PO STA (08:47)
--- NOTE | 2020-01-07 08:54 | NUR ---
Page sent to Dr. Barraza regarding clarification on potassium replacement. PAGER ID: [phone] MESSAGE: re [id number] Sadie Elliott- K+ being replaced per protocol, 40meq PO x3 doses. Do you still want the extra dose? Thanks, Khushboo x [phone]
[2020-01-07 10:52] LABS: PARTIAL THROMBOPLASTIN TIME 27 SECONDS (22-32)
[2020-01-07 11:00] VITALS: BP 101/65
--- NOTE | 2020-01-07 15:10 | NUR ---
Patient stable for discharge per MD order. Discharge instructions given to patient and spouse. New medications sent to [facility]. PIV d/c'd catheter intact. Tele monitor removed and returned to telehealth nurse. Patient had all belongings. Patient transported off unit via wheelchair to private vehicle.
== END 2020-01-07 15:10 | disposition home or self-care (01) | DRG 242 ==
LOC: ER 20:08 → ED HOLD 01-02 03:17 → PCU 3S 01-02 04:08
PROVIDERS: ADMIT Internal Medicine; ATTEND Internal Medicine
PROC: 0DJ08ZZ Inspection of Upper Intestinal Tract, Via Natural or Artificial Opening Endoscopic (ICD-10-PCS; principal; 2020-01-03)
PROC: 30233N1 Transfusion of Nonautologous Red Blood Cells into Peripheral Vein, Percutaneous Approach (ICD-10-PCS; 2020-01-05)
DX: K22.11 Ulcer of esophagus with bleeding (principal); E87.0 Hyperosmolality and hypernatremia; D62 Acute posthemorrhagic anemia; E87.1 Hypo-osmolality and hyponatremia; I47.1 Supraventricular tachycardia; B96.20 Unspecified Escherichia coli [E. coli] as the cause of diseases classified elsewhere; E03.9 Hypothyroidism, unspecified; E87.6 Hypokalemia; I10 Essential (primary) hypertension; K21.9 Gastro-esophageal reflux disease without esophagitis; K22.2 Esophageal obstruction; K29.50 Unspecified chronic gastritis without bleeding; N39.0 Urinary tract infection, site not specified; Z66 Do not resuscitate; Z87.891 Personal history of nicotine dependence; Z90.710 Acquired absence of both cervix and uterus; G89.29 Other chronic pain; F41.9 Anxiety disorder, unspecified; F32.9 Major depressive disorder, single episode, unspecified; D64.9 Anemia, unspecified
CPT/HCPCS: 36415; 43236; 43239; 43248; 43255; 71045; 80048; 80053; 80305; 80320; 81001; 82150; 82948; 83605; 83690; 83735; 84100; 84132; 84145; 84443; 84484; 85025; 85610; 85730; 86885; 86900; 86901; 86920; 87040; 87077; 87081; 87088; 87186; 93005; 96374; 96375; 97116; 97161; 97530; 99152; 99153; 99291; A4620; C9113; G0378; J0153; J0171; J0696; J0780; J1170; J2060; J2250; J2405; J2543; J2765; J3010; J3411; J3480; J3490; J7030; J7040; J7060; J7070; P9016